=== PATIENT | female | born 1975 | race Caucasian/White ===

== ENCOUNTER 2018-08-20 11:53 | Emergency (ER) | payer BC ==
[~2018-08-20] VITALS: Ht 167.6 cm; Wt 102.1 kg
[2018-08-20 11:57] VITALS: BP 124/78; Ht 167.6 cm; Wt 102.1 kg
== END 2018-08-20 13:46 | disposition left against medical advice (07) ==
LOC: ED 11:53
DX: Z53.21 Procedure and treatment not carried out due to patient leaving prior to being seen by health care provider (principal)